=== PATIENT | female | born 1970 | race Two or more races ===

== ENCOUNTER 2025-02-14 12:28 | Emergency (ER) | payer OTHER ==
[~2025-02-14] VITALS: Ht 167.6 cm; Wt 69.5 kg
[2025-02-14 12:36] VITALS: BP 129/74; PULSE 69; RESP 18; TEMP 98.2; O2SAT 99
== END 2025-02-14 13:48 | disposition left against medical advice (07) ==
LOC: ER 12:28
DX: H57.13 Ocular pain, bilateral (principal); Z53.21 Procedure and treatment not carried out due to patient leaving prior to being seen by health care provider

== ENCOUNTER 2025-03-15 10:56 | Emergency (ER) | payer OTHER ==
[~2025-03-15] VITALS: Ht 167.6 cm; Wt 70.6 kg
[2025-03-15 11:12] VITALS: BP 142/89; TEMP 98.6
--- NOTE | 2025-03-15 11:18 | ED.PDOC ---
SOB-HPI HPI Comments 54 y.o female with PMHx of arthritis and migraines, presents to the ED for a chief complaint of a productive cough associated with SOB and yellow phlegm sputum that started 2 weeks ago. Patient reports chest discomfort on inspiration rating a 8/10 on the pain scale. Patient also mentions urgency x 3 weeks, dx with UTI then and given antibiotics but never resolved. She denies any hematuria, dysuria, nausea, vomiting, back, abdominal pain, leg swelling, fever, chills. Patient denies substance, alcohol or tobacco use. 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 Family History Family History: Family hx of Cancer, Family hx of HTN, Family hx of stroke Social History Smoker: Non-Smoker Alcohol: Denies ETOH Use Drugs: Denies Drug Use Lives In: Home Constitutional: denies: chills, diaphoresis, fatigue, fever, malaise, sweats, weakness, others EENTM: denies: blurred vision, double vision, ear bleeding, ear discharge, ear drainage, ear pain, ear ringing, eye pain, eye redness, hearing loss, mouth pain, mouth swelling, nasal discharge, nose bleeding, nose congestion, nose pain, photophobia, tearing, throat pain, throat swelling, voice changes, others Respiratory: reports: cough; denies: hemoptysis, orthopnea, SOB at rest, shortness of breath, SOB with excertion, stridor, wheezing, others Cardiovascular: reports: chest pain; denies: dizzy spells, diaphoresis, Dyspnea on exertion, edema, irregular heart beat, left arm pain, lightheadedness, palpitations, PND, syncope, others Gastrointestinal: denies: abdomen distended, abdominal pain, blood streaked bowels, constipated, diarrhea, dysphagia, difficulty swallowing, hematemesis, melena, nausea, poor appetite, poor fluid intake, rectal bleeding, rectal pain, vomiting, others Genitourinary: denies: abnormal vagina bleeding, burning, dyspareunia, dysuria, flank pain, frequency, hematuria, incontinence, pain, , vagina discharge, urgency, others Neurological: denies: dizziness, fainting, headache, left sided numbness, left sided weakness, numbness, paresthesia, pre-existing deficit, right sided numbness, right sided weakness, seizure, speech problems, tingling, tremors, weakness, others Musculoskeletal: denies: back pain, gout, joint pain, joint swelling, muscle pain, muscle stiffness, neck pain, others Integumetry: denies: bruises, change in color, change in hair/nails, dryness, laceration, lesions, lumps, rash, wounds, others Allergic/Immunocompromised: denies: Difficulty Healing, Frequent Infections, Hives, Itching, others Hematologic/Lymphatic: denies: anemia, blood clots, easy bleeding, easy bruising, swollen glands, others Endocrine: denies: excessive hunger, excessive sweating, excessive thirst, excessive urination, flushing, intolerance to cold, intolerance to heat, unexplained weight gain, unexplained weight loss, others Psychiatric: denies: anxiety, bipolar disorder, depression, hopeless, panic disorder, schizophrenia, sleepless, suicidal, others All Other Systems: Reviewed and Negative Physical Exam General Appearance: Mild Distress HEENT: Normal ENT Inspection, Pharynx Normal, TMs Normal Neck: Full Range of Motion, Non-Tender, Normal, Normal Inspection Respiratory: Chest Non-Tender, Lungs Clear, No Accessory Muscle Use, No R espiratory Distress, Normal Breath Sounds Cardiovascular: No Edema, No JVD, No Murmur, No Gallop, Normal Peripheral Pulses, Regular Rate/Rhythm Breast Exam: Deferred Gastrointestinal: No Organomegaly, Non Tender, No Pulsatile Mass, Normal Bowel Sounds, Soft Genitalia: Deferred Pelvic: Deferred Rectal: Deferred Extremities: No calf tenderness, Normal capillary refill, Normal inspection, Normal range of motion, Non-tender, No pedal edema Musculoskeletal : Apperance: Normal Neurologic: Alert, metal spray operator II-XII nml as Tested, No Motor Deficits, Normal Affect, Normal Mood, No Sensory Deficits Cerebellar Function: Normal Reflexes: Normal Skin: Dry, Normal Color, Warm Lymphatic: No Adenopathy Was a procedure done? Was a procedure done?: No Differential Dx Differential Diagnosis: Asthma, Bronchitis, Pneumonia, Pulmonary Embolism, Respiratory Distress, URI X-Ray, Labs, Meds, VS Vital Signs Date Time Temp Pulse Resp B/P (MAP) Pulse Ox O2 Delivery O2 Flow Rate FiO2 03/15/25 11:20 66 20 98 Room Air* 0 21 03/15/25 11:15 20 98 Room Air* 0 21 03/15/25 11:12 98.6 66 20 142/89 (106) 98 98.6 03/15/25 11:12 98.6 66 20 142/89 (106) 98 98.6 Lab Test 03/15/25 11:18 03/15/25 11:08 03/15/25 11:07 Range/Units White Blood Count 6.5 4.4-10.8 10^3/uL Red Blood Count 4.19 4.0-5.20 10^6/uL Hemoglobin 12.9 12.2-16.2 g/dL Hematocrit 37.0 36.0-46.0 % Mean Corpuscular Volume 88.2 80.0-100.0 fL Mean Corpuscular Hemoglobin 30.8 28.0-32.0 pg Mean Corpuscular Hemoglobin Concent 35.0 32.0-36.0 g/dL Red Cell Distribution Width 13.2 11.8-14.3 % Platelet Count 229 140-450 10^3/uL Mean Platelet Volume 7.7 6.9-10.8 fL Neutrophils (%) (Auto) 82.9 H 37.0-80.0 % Lymphocytes (%) (Auto) 8.3 L 10.0-50.0 % Monocytes (%) (Auto) 7.5 0.0-12.0 % Eosinophils (%) (Auto) 0.7 0.0-7.0 % Basophils (%) (Auto) 0.6 0.0-2.0 % Neutrophils # (Auto) 5.4 1.6-8.6 10 ^3/uL Lymphocytes # (Auto) 0.5 0.4-5.4 10 ^3/uL Monocytes # (Auto) 0.5 0-1.3 10 ^3/uL Eosinophils # (Auto) 0 0-0.8 10 ^3/uL Basophils # (Auto) 0 0-0.2 10 ^3/uL Nucleated Red Blood Cells 0.0 % Sodium Level 135 L 136-145 mmol/L Potassium Level 4.4 3.5-5.1 mmol/L Chloride Level 100 98-107 mmol/L Carbon Dioxide Level 28 20-31 mmol/L Anion Gap 7 5-15 Blood Urea Nitrogen 10 9-23 mg/dL Creatinine 0.94 0.550-1.02 mg/dL Glomerular Filtration Rate Calc 72 >90 mL/min BUN/Creatinine Ratio 10.6 10.0-20.0 Serum Glucose 94 74-106 mg/dL Calcium Level 10.9 H 8.7-10.4 mg/dL B-Type Natriuretic Peptide 34.78 0-100 pg/mL Influenza Type A Antigen Negative Negative Influenza Type B Antigen Negative Negative SARS-CoV-2 Antigen (Rapid) Negative NEGATIVE Urine Color Colorless Yellow Urine Clarity Clear Clear Urine pH 7.5 5.0-9.0 Urine Specific Rush 1.005 1.001-1.035 Urine Protein Negative Negative Urine Ketones Negative Negative Urine Blood 1+ H Negative /uL Urine Nitrite Negative Negative Urine Bilirubin Negative Negative Urine Urobilinogen Normal Negative mg/dL Urine Leukocyte Esterase Negative Negative /uL Urine RBC 4 0 - 4 /hpf Urine Microscopic WBC 0-5 /HPF Urine Squamous Epithelial Cells Few <5 /hpf Urine Bacteria None seen None Seen /hpf Urine Glucose Normal Normal mg/dL The chest x-ray shows some peribronchial cuffing The urine test is negative for infection The CBC and chemistry panel within normal limits The COVID test is negative The influenza a and influenza B are negative At this time, patient is being discharged with a diagnosis of acute bronchitis The patient was given a prescription of Zithromax The patient was given a prescription of a Medrol Dosepak The patient will return to the emergency department's the condition worsens. Patient understands and agrees with the management. Images Reviewed?: Images reviewed and evaluated by me Time of 1ST Reevaluation: 11:18 Reevaluation 1ST: Unchanged Patient Education/Counseling: Diagnosis, Treatment, Prognosis, Need For Follow Up Family Education/Counseling: No Family Present SEPSIS Sepsis Screen Physician Orders Chest Two Views Routine (03/15/25 11:09) Vital Signs Date Time Temp Pulse Resp B/P (MAP) Pulse Ox O2 Delivery O2 Flow Rate FiO2 03/15/25 11:20 66 20 98 Room Air* 0 21 03/15/25 11:15 20 98 Room Air* 0 21 03/15/25 11:12 98.6 66 20 142/89 (106) 98 98.6 03/15/25 11:12 98.6 66 20 142/89 (106) 98 98.6 Laboratory Tests Test 03/15/25 11:18 White Blood Count 6.5 10^3/uL (4.4-10.8) Departure 1 Departure Time of Disposition: 12:02 Impression: Primary Impression: Acute bronchitis Qualified Codes: J20.9 - Acute bronchitis, unspecified Disposition: 01 HOME / SELF CARE / HOMELESS Condition: Fair e-Prescriptions Methylprednisolone (Medrol Dosepak) 4 Mg Samir 4 MG PO UD, #21 TAB UAD Prov: ABBY SARMIENTO MD 03/15/25 Azithromycin (Zithromax) 500 Mg Tab 1 TAB PO DAILY, #5 TAB Prov: ABBY SARMIENTO MD 03/15/25 Discharged With: Self Critical Care Note Critical Care Time?: No Stability Stability form required: No Heart Score Heart Score: Heart Score Response (Comments) Value History N/A 0 EKG N/A 0 Age N/A 0 Risk Factors N/A 0 Troponin N/A 0 Total 0 I personally scribed for ABBY SARMIENTO MD ([email or web address]) on 03/15/25 at 11:18. Electronically submitted by Destiny Mario ([facility]). ABBY SARMIENTO MD Mar 15, 2025 11:18
[2025-03-15 11:20] VITALS: PULSE 66; RESP 20; O2SAT 98
[2025-03-15 11:31] LABS: Hematocrit 37.0 % (36.0-46.0); Hemoglobin 12.9 g/dL (12.2-16.2); Mean Corpuscular Hemoglobin 30.8 pg (28.0-32.0); Mean Corpuscular Volume 88.2 fL (80.0-100.0); Nucleated Red Blood Cells % 0.0 %
[2025-03-15 11:41] LABS: Chloride 100 mmol/L (98-107); Potassium 4.4 mmol/L (3.5-5.1)
[2025-03-15 11:42] LABS: Anion Gap 7 (5-15); Carbon Dioxide 28 mmol/L (20-31)
[2025-03-15 11:47] LABS: BUN/Creatinine Ratio 10.6 (10.0-20.0); Blood Urea Nitrogen 10 mg/dL (9-23); Glucose 94 mg/dL (74-106)
--- NOTE | 2025-03-15 11:47 | DVH ---
XY CHEST TWO VIEWS ROUTINE, HISTORY: sob COMPARISON: None None TECHNICAL DATA: 2 view of the chest was obtained. FINDINGS: Lines and tubes: None Cardiomediastinal silhouette: normal Pulmonary vasculature: normal Lung expansion: normal Lung airspace: normal Lung interstitium: normal Pleura: normal Pneumothorax: no Bones: Unremarkable Other: no IMPRESSION: No acute intrathoracic abnormality.
[2025-03-15 11:48] LABS: COVID19 ANTIGEN SOFIA FIA NEGATIVE (NEGATIVE)
[2025-03-15 11:49] LABS: Calcium 10.9 mg/dL (8.7-10.4); Sodium 135 mmol/L (136-145)
[2025-03-15 11:51] LABS: Urine Protein, UAD Negative (Negative)
[2025-03-15] MEDS ORDERED: AZIT500T PO (12:01)
[2025-03-15] MEDS ORDERED: METH4PAK PO (12:02)
== END 2025-03-15 12:10 | disposition home or self-care (01) ==
LOC: ER 10:56
DX: J20.9 Acute bronchitis, unspecified (principal); M19.90 Unspecified osteoarthritis, unspecified site; G43.909 Migraine, unspecified, not intractable, without status migrainosus; Z20.822 Contact with and (suspected) exposure to COVID-19
CPT/HCPCS: 36415; 71046; 80048; 81001; 83880; 85025; 87426; 87804